=== PATIENT | female | born 1955 | race Caucasian/White ===

== ENCOUNTER 2018-06-17 15:41 | Emergency (ER) | payer BC ==
--- NOTE | 2018-06-17 16:18 | Emergency Department Record ---
History of Present Illness - General Chief complaint: Eye Problem Stated complaint: RT EYE LOSS OF VISION Time Seen by Provider: 06/17/18 16:04 Source: Patient Mode of Arrival: Ambulatory Limitations: No limitations - History of Present Illness Initial comments: pt started having floaters yesterday in her r eye. then today it was like a green algae in her yey and then an hout=r ago the green algae seem to cover all of her vision in her r eye. she can see colors and shapes but everything looks blurry and like it is covered w green algae. dr miranda is her opthamologist and did her MD chief complaint: Vision change Onset/Timin -: Hour(s) Onset Description: Gradual Location: Right eye Place: Home Severity: Mild Severity scale (1-10): 1 If Pain, Quality: Aching - Related Data Visual acuity (L) = 20/: 20 Visual acuity (R) = 20/: 100 With correction: No Patient Tetanus UTD (within 5 yrs): Yes Home Medications Medication Instructions Recorded Confirmed Last Taken Alendronate Sodium 70 mg PO WEEKLY 06/17/18 06/17/18 1 Day Ago ~06/16/18 Amlodipine Besylate [Norvasc] 5 mg PO DAILY 06/17/18 06/17/18 1 Day Ago ~06/16/18 Biotin 1,000 mcg PO DAILY 06/17/18 06/17/18 1 Day Ago ~06/16/18 Chlorthalidone 25 mg PO DAILY 06/17/18 06/17/18 1 Day Ago ~06/16/18 Cholecalciferol (Vitamin D3) 2,000 unit PO DAILY 06/17/18 06/17/18 1 Day Ago [Vitamin D3] ~06/16/18 Losartan Potassium 100 mg PO DAILY 06/17/18 06/17/18 1 Day Ago ~06/16/18 Allergies Allergy/AdvReac Type Severity Reaction Status Date / Time No Known Drug Allergies Allergy Verified 06/17/18 15:52 Travel Screening - Travel/Exposure Within Last 30 Days Have you traveled within the last 30 days?: No - Additonal Travel Details Have you been exposed to anyone with a communicable illness?: No - Travel Symptoms Symptom Screening: None Review of Systems Reviewed: No additional complaints except as noted below Constitutional: Reports: As per HPI. Denies: Chills, Fever, Malaise, Night sweats, Weakness, Weight change Eyes: Reports: As per HPI, Vision change. Denies: Eye discharge, Eye pain, Photophobia ENT: Reports: As per HPI. Denies: Congestion, Dental pain, Ear pain, Epistaxis , Hearing loss, Throat pain Respiratory: Reports: As per HPI. Denies: Cough, Dyspnea, Hemoptysis, Stridor, Wheezes Cardiovascular: Reports: As per HPI. Denies: Arrhythmia, Chest pain, Dyspnea on exertion, Edema, Murmurs, Orthopnea, Palpitations, Paroxysmal nocturnal dyspnea, Rheumatic Fever, Syncope Endocrine: Reports: As per HPI. Denies: Fatigue, Heat or cold intolerance, Polydipsia, Polyuria Gastrointestinal: Reports: As per HPI. Denies: Abdominal pain, Constipation, Diarrhea, Hematemesis, Hematochezia, Melena, Nausea, Vomiting Genitourinary: Reports: As per HPI. Denies: Abnormal menses, Discharge, Dyspareunia, Dysuria, Frequency, Hematuria, Incontinence, Retention, Urgency Musculoskeletal: Reports: As per HPI. Denies: Arthralgia, Back pain, Gout, Joint swelling, Myalgia, Neck pain Skin: Reports: As per HPI. Denies: Bruising, Change in color, Change in hair/ nails, Lesions, Pruritus, Rash Neurological: Reports: As per HPI. Denies: Abnormal gait, Confusion, Headache, Numbness, Paresthesias, Seizure, Tingling, Tremors, Vertigo, Weakness Psychiatric: Reports: As per HPI. Denies: Anxiety, Auditory hallucinations, Depression, Homicidal thoughts, Suicidal thoughts, Visual hallucinations Hematological/Lymphatic: Reports: As per HPI. Denies: Anemia, Blood Clots, Easy bleeding, Easy bruising, Swollen glands Past Medical History - SOCIAL HISTORY Smoking Status: Former smoker - RESPIRATORY Hx Respiratory Disorders: No - CARDIOVASCULAR Hx Cardio Disorders: Yes Hx Hypertension: Yes - NEURO Hx Neuro Disorders: No - GI Hx GI Disorders: No - Hx Genitourinary Disorders: No - ENDOCRINE Hx Endocrine Disorders: No - MUSCULOSKELETAL Comment:: scoliosis, getting worse - PSYCH Hx Psych Problems: No - HEMATOLOGY/ONCOLOGY Hx Cancer: No Family Medical History Any Significant Family History?: Yes Hx Diabetes: Father Hx Heart Disease: Father Physical Exam - General General Appearance: Alert, Oriented x3, Cooperative, Mild distress - Head Head exam: Normal inspection - Eye Eye exam: Normal appearance, PERRL, EOMI Pupils: Normal accommodation, Other (loss of clear red reflex) Visual acuity (L) = 20/: 20 Visual acuity (R) = 20/: 100 With correction: No - ENT ENT exam: Normal exam, Mucous membranes moist, Normal external ear exam, Normal orophraynx Ear exam: Normal external inspection. negative: External canal tenderness Nasal Exam: Normal inspection. negative: Discharge, Sinus tenderness Mouth exam: Normal external inspection, Tongue normal Teeth exam: Normal inspection. negative: Dental caries Throat exam: Normal inspection. negative: Tonsillar erythema, Tonsillar exudate - Neck Neck exam: Normal inspection, Full ROM. negative: Tenderness - Respiratory Respiratory exam: Normal lung sounds bilaterally. negative: Respiratory distress - Cardiovascular Cardiovascular Exam: Normal rhythm, Normal heart sounds, Tachycardia - GI/Abdominal GI/Abdominal exam: Soft, Normal bowel sounds. negative: Tenderness - Rectal Rectal exam: Deferred - exam: Deferred - Extremities Extremities exam: Normal inspection, Full ROM, Normal capillary refill. negative: Tenderness - Back Back exam: Reports: Normal inspection, Full ROM. Denies: Muscle spasm, Rash noted, Tenderness - Neurological Neurological exam: Alert, CN II-XII intact, Normal gait, Oriented X3 - Psychiatric Psychiatric exam: Normal affect, Normal mood - Skin Skin exam: Dry, Intact, Normal color, Warm Course Vital Signs 06/17/18 15:44 Temperature 97.9 F Pulse Rate 109 H Respiratory 18 Rate Blood Pressure 149/80 Pulse Ox 99 - Reevaluation(s) Reevaluation #1: 06/17/18 16:22 d/w dr miranda who will meet her in 50 minutes. Disposition Disposition: Transfer Clinical Impression: Change in vision Disposition: Acute Care Hospital Transfer Transfer To: dr miranda Reason For Transfer: needs ophthamologist Accepting Physician: dr miranda Time Discussed w/Accepting Physician: 16:24 Forms: Patient Portal Access Quality - Quality Measures Quality Measures: N/A - Blood Pressure Screening Does Patient Have Any of the Following: No Blood Pressure Classification: Pre-Hypertensive BP Reading Systolic Measurement: 149 Diastolic Measurement: 80 Screening for High Blood Pressure: < Pre-Hypertensive BP, F/U Documented > [ [id number]] Pre-Hypertensive Follow-up Interventions: Follow-up with rescreen every year.
== END 2018-06-17 16:35 | disposition short-term general hospital (02) ==
LOC: ER 15:41
DX: H53.8 Other visual disturbances (principal); I10 Essential (primary) hypertension; Z87.891 Personal history of nicotine dependence
CPT/HCPCS: 99283